=== PATIENT | male | born 1980 | race Caucasian/White ===

== ENCOUNTER 2017-04-21 21:55 | Emergency (ER) | payer BC ==
--- NOTE | ~2017-04-21 | ER ---
PATIENT'S NAME: LANI BLANCO [facility] AGE: 36 Y [address] ROOM: [place], [place] [address] LOCATION: [facility] ADMIT DATE: 04/21/2017 ER/Outpatient Report DISCHARGE DATE: 04/21/2017 FAMILY PHYSICIAN: Roberth Mendoza MD ATTENDING PHYSICIAN: Melody Fontanez HISTORY OF PRESENT ILLNESS: A 36-year-old male who is right-hand dominant presents with a left hand palm laceration, it is in the hypothenar area. The patient denies any numbness or tingling sustained about 2 hours prior to coming in. He was prying apart hamburgers with a paring knife and accidentally cut the palm of his left hand. He has 0/10 pain. He initially just covered it up and band-aided it, but then it would not stop bleeding so that is why he decided to come in. Denies any nausea, vomiting. No fever or chills. No numbness or tingling of his hand. He says it is very swollen, he feels like a bruise, it is only there, but he has otherwise no complaints. PAST MEDICAL HISTORY: Chronic back pain. PAST SURGICAL HISTORY: Nerve stimulator. SOCIAL HISTORY: He does not smoke, drink, or use any drugs. MEDICATIONS: Gabapentin, hydrocodone, and Flexeril. ALLERGIES: NONE. REVIEW OF SYSTEMS: Reviewed by me and negative with the exception of those discussed in HPI. PHYSICAL EXAMINATION: VITAL SIGNS: The patient's height is 6 feet, 3 inches, he weighs 112 kilos, blood pressure 128/75, heart rate 74, respiratory rate 16, temp is 98 Fahrenheit, and sats are 98% on room air. GENERAL: The patient is not in any acute distress, alert, interactive and speaking to me in full sentences. EXTREMITIES: His left hand, he has a 1 cm linear laceration with subcu fat exposed. It is not very deep though. He does have a pretty large hematoma underneath, but does not appear to be expanding. He says it has been about the same size in the last 2 hours. He has some bruising noted around that PATIENT'S NAME: LANI BLANCO [facility] AGE: 36 Y [address] ROOM: [place], [place] [address] LOCATION: [facility] ADMIT DATE: 04/21/2017 ER/Outpatient Report DISCHARGE DATE: 04/21/2017 FAMILY PHYSICIAN: Roberth Mendoza MD ATTENDING PHYSICIAN: Melody Fontanez as well. He has full range of motion of all of his fingers. He can oppose his thumb make a peace sign and okay sign. He is able to oppose his thumb against resistance as well. Intact sensation in the radial, ulnar, and median distributions. EMERGENCY ROOM COURSE: The wound was anesthetized with 1 mL of 1% lidocaine without epi. After appropriate anesthesia had been achieved, I cleaned it to the best of my ability with high-pressure tap water. It does not appear contaminated. I trimmed some of the subcu fat a little bit, and then I put 2 simple interrupted sutures using 4-0 Ethilon. The patient tolerated the procedure well. I covered it with Neosporin and put a Band-Aid in and [place] it. He is to follow up in 7 days for suture removal with his primary care doctor. He understands reasons to comeback to the ER sooner. IMPRESSION: Palm laceration. MD ANNE WELSH/maki /[id number] d: 04/22/171 t: 04/22/171933, OUTPATIENT REPORT
== END 2017-04-21 22:36 | disposition disaster alternative care site (69) ==
LOC: GACC 21:55
PROC: 0HQFXZZ Repair Right Hand Skin, External Approach (ICD-10-PCS; principal; 2017-04-21)
DX: S61.411A Laceration without foreign body of right hand, initial encounter (principal); M54.5 Low back pain; G89.29 Other chronic pain; Z79.899 Other long term (current) drug therapy; W26.0XXA Contact with knife, initial encounter